=== PATIENT | male | born 1970 | race Caucasian/White ===

== ENCOUNTER 2016-10-02 08:53 | Emergency (ER) | payer BC ==
--- NOTE | 2016-10-02 08:58 | PDOC ---
History of Present Illness - General History Source: Patient Exam Limitations: No Limitations - History of Present Illness Initial Comments: 10/02/16 10:43 The patient is a 46-year-old male, current smoker with a significant past medical history of asthma, who presents to the emergency department with redness and itching today. The patient states the itching is diffuse throughout his body. He reports that he ate this morning before the erythema and itching began. The patient reports he is wheezing. The patient states that he took a childrens dose of Benadryl without relief. The patient denies chest pain, headache and dizziness. The patient denies fever , chills, nausea, vomit, diarrhea and constipation. The patient denies dysuria, frequency, urgency and hematuria. Allergies: levofloxacin, penicillins Social history: Current everyday smoker <Siomara Rae - Last Filed: 10/02/16 10:43> <Ryan Monk - Last Filed: 10/02/16 11:12> - General Chief Complaint: Allergic Reaction Stated Complaint: Allergic Reaction Time Seen by Provider: 10/02/16 08:58 Past History <Siomara Rae - Last Filed: 10/02/16 10:43> <Ryan Monk - Last Filed: 10/02/16 11:12> - Past Medical History Allergies/Adverse Reactions: Allergies Allergy/AdvReac Type Severity Reaction Status Date / Time levofloxacin [From Levaquin] Allergy Severe anaphylaxis Verified 10/02/16 09:00 Penicillins Allergy Unknown Verified 10/02/16 09:00 Home Medications: Ambulatory Orders Diphenhydramine [Benadryl -] 50 mg PO DAILY #20 capsule 10/02/16 Famotidine [Pepcid -] 40 mg PO DAILY #4 tablet 10/02/16 Prednisone [Deltasone] 40 mg PO DAILY #4 tablet 10/02/16 Review of Systems - Review of Systems Able to Perform ROS?: Yes Comments:: 10/02/16 10:43 CONSTITUTIONAL: Absent: fever, chills, diaphoresis, generalized weakness, malaise, loss of appetite HEENT: Absent: rhinorrhea, nasal congestion, throat pain, throat swelling, difficulty swallowing, mouth swelling, ear pain, eye pain, visual changes CARDIOVASCULAR: Absent: chest pain, syncope, palpitations, irregular heart rate, lightheadedness , peripheral edema RESPIRATORY: Present: (+) wheezing Absent: cough, shortness of breath, dyspnea with exertion, orthopnea, stridor, hemoptysis GASTROINTESTINAL: Absent: abdominal pain, abdominal distension, nausea, vomiting, diarrhea, constipation, melena, hematochezia GENITOURINARY: Absent: dysuria, frequency, urgency, hesitancy, hematuria, flank pain, genital pain MUSCULOSKELETAL: Absent: myalgia, arthralgia, joint swelling SKIN: Present: (+)redness, (+) itching Absent: pallor HEMATOLOGIC/IMMUNOLOGIC: Absent: easy bleeding, easy bruising, lymphadenopathy, frequent infections ENDOCRINE: Absent: unexplained weight gain, unexplained weight loss, heat intolerance, cold intolerance NEUROLOGIC: Absent: headache, focal weakness or paresthesias, dizziness, unsteady gait, seizure, mental status changes, bladder or bowel incontinence PSYCHIATRIC: Absent: anxiety, depression, suicidal or homicidal ideation, hallucinations. <RaeRuddya - Last Filed: 10/02/16 10:43> *Physical Exam - Vital Signs Last Vital Signs Temp Pulse Resp BP Pulse Ox 92 H 16 113/75 98 10/02/16 10:40 10/02/16 10:40 10/02/16 10:33 10/02/16 10:33 - Physical Exam Comments: 10/02/16 10:43 GENERAL: Well developed, well nourished. Awake and alert. In no acute distress. HEENT: Normocephalic, atraumatic. PERRLA, EOMI. No conjunctival pallor. Sclera are non- icteric. Moist mucous membranes. Oropharynx is clear. NECK: Supple. Full ROM. No JVD. Carotid pulses 2+ and symmetric, without bruits. No thyromegaly. No lymphadenopathy. CARDIOVASCULAR: Regular rate and rhythm. No murmurs, rubs, or gallops. Distal pulses are 2+ and symmetric. PULMONARY: (+) Wheezing on initial exam. On re-exam, the lungs are now clear. No rales or rhonchi. ABDOMINAL: Soft. Non-tender. Non-distended. No rebound or guarding. No organomegaly. Normoactive bowel sounds. MUSCULOSKELETAL Normal range of motion at all joints. No bony deformities or tenderness. No CVA tenderness. EXTREMITIES: No cyanosis. No clubbing. No edema. No calf tenderness. SKIN: (+) Erythematous. Warm and dry. Normal capillary refill. No rashes. No jaundice. NEUROLOGICAL: Alert, awake, appropriate. Cranial nerves 2-12 intact. No deficits to light touch and temperature in face, upper extremities and lower extremities. No motor deficits in the in face, upper extremities and lower extremities. Normoreflexic in the upper and lower extremities. Normal speech. Toes are downgoing bilaterally. Gait is normal without ataxia. PSYCHIATRIC: Cooperative. Good eye contact. Appropriate mood and affect. <Siomara Rae - Last Filed: 10/02/16 10:43> ED Treatment Course - Medications Given in the ED: ED Medications Discontinued Medications Generic Name Dose Route Start Last Admin Trade Name Silvanoq PRN Reason Stop Dose Admin Albuterol/Ipratropium 1 amp 10/02/16 09:15 10/02/16 10:26 Duoneb - NEB 10/02/16 10:01 1 amp Q15M MARI Administration Dexamethasone Sodium Phosphate 10 mg 10/02/16 08:59 10/02/16 09:13 Decadron Injection - IVPUSH 10/02/16 09:00 10 mg ONCE ONE Administration Diphenhydramine HCl 50 mg 10/02/16 09:00 10/02/16 09:13 Benadryl Injection - IVPUSH 10/02/16 09:01 50 mg ONCE ONE Administration Epinephrine HCl 300 mcg 10/02/16 08:59 10/02/16 09:04 Epinephrine 1:1000 P/F - SQ 10/02/16 09:00 300 mcg ONCE ONE Administration Famotidine/Sodium Chloride 50 mls @ 100 mls/hr 10/02/16 09:00 10/02/16 09:14 Pepcid 20 Mg Premixed Ivpb - IVPB 10/02/16 09:29 100 mls/hr ONCE ONE Administration <Siomara Rae - Last Filed: 10/02/16 10:43> *DC/Admit/Observation/Transfer - Attestations Scribe Attestion: 10/02/16 10:44 Documentation prepared by Siomara Rae, acting as medical affairs director for Ryan Monk MD. <Siomara Rae - Last Filed: 10/02/16 10:43> - Discharge Dispostion Admit: No <Ryan Monk Last Filed: 10/02/16 11:12> Diagnosis at time of Disposition: Allergic reaction - Discharge Dispostion Disposition: HOME Condition at time of disposition: Improved - Prescriptions Prescriptions: Diphenhydramine [Benadryl -] 50 mg PO DAILY #20 capsule Prednisone [Deltasone] 40 mg PO DAILY #4 tablet Famotidine [Pepcid -] 40 mg PO DAILY #4 tablet - Patient Instructions Printed Discharge Instructions: DI for General Allergic Reactions Additional Instructions: follow up your doctor. Do NOT eat that type of food again.
[2016-10-02] MEDS ORDERED: EPINEPHrine/PF 1 MG/1 ML (1:1,000) AMPULE SQ ONE (08:59)
[2016-10-02] MEDS ORDERED: EPINEPHrine/PF 1 MG/1 ML (1:1,000) AMPULE ONE (08:59)
[2016-10-02] MEDS ORDERED: DEXAMETHASONE SOD PHOSPHATE 10 MG/1 ML VIAL IVPUSH ONE (08:59)
[2016-10-02 09:00] VITALS: BMI 30.2
[2016-10-02] MEDS ORDERED: FAMOTIDINE 20 MG/50 ML IVPB 50 ML IVPB ONE ×2 (09:00→09:06)
[2016-10-02] MEDS ORDERED: DEXAMETHASONE SOD PHOSPHATE 10 MG/1 ML VIAL ONE (09:06)
[2016-10-02] MEDS ORDERED: ALBUTEROL SO4 2.5/IPRATROPIUM 0.5 INH SOL 3 ML VIAL.NEB. NEB ONE (09:07)
[2016-10-02] MEDS: ALBUTEROL SO4 2.5/IPRATROPIUM 0.5 INH SOL 3 ML VIAL.NEB. NEB SCH ×4 (09:14→10:26)
[2016-10-02 11:10] VITALS: BP 117/69; PULSE 94
== END 2016-10-02 11:11 | disposition home or self-care (01) ==
LOC: JER 08:53
PROC: 3E0F7GC Introduction of Other Therapeutic Substance into Respiratory Tract, Via Natural or Artificial Opening (ICD-10-PCS; principal; 2016-10-02)
PROC: 3E023GC Introduction of Other Therapeutic Substance into Muscle, Percutaneous Approach (ICD-10-PCS; 2016-10-02)
PROC: 3E033GC Introduction of Other Therapeutic Substance into Peripheral Vein, Percutaneous Approach (ICD-10-PCS; 2016-10-02)
DX: T78.40XA Allergy, unspecified, initial encounter (principal); X58.XXXA Exposure to other specified factors, initial encounter; F17.210 Nicotine dependence, cigarettes, uncomplicated
CPT/HCPCS: 99283-25